=== PATIENT | male | born 1955 | race Two or more races ===

== ENCOUNTER → 2022-07-02 | Outpatient (CLI) | payer OTHER | END | disposition home or self-care (01) | LOC: NUCLEAR 07:00 | PROVIDERS: ATTEND Surgery | DX: K81.1 Chronic cholecystitis (principal) | CPT/HCPCS: 78227; A9537; J2805 ==

== ENCOUNTER 2022-08-12 08:30 | Outpatient (CLI) | payer OTHER | END 2022-08-12 08:38 | disposition home or self-care (01) | LOC: RAD 08:30 | PROVIDERS: ATTEND General Practice | DX: R07.9 Chest pain, unspecified (principal); M54.50 Low back pain, unspecified ==

== ENCOUNTER 2023-06-15 09:31 | Outpatient (CLI) | payer OTHER | END 2023-06-15 09:35 | disposition home or self-care (01) | LOC: SONOGRAMA 09:31 | PROVIDERS: ATTEND General Practice | DX: R74.01 Elevation of levels of liver transaminase levels (principal) ==

== ENCOUNTER 2023-10-15 07:52 | Outpatient (CLI) | payer OTHER | END 2023-10-15 07:55 | disposition home or self-care (01) | LOC: RAD 07:52 | PROVIDERS: ATTEND General Practice | DX: I70.0 Atherosclerosis of aorta (principal) ==